=== PATIENT | female | born 1930 | race Caucasian/White ===

== ENCOUNTER → 2017-05-09 | Outpatient (CLI) | payer OTHER ==
[~2017-05-09] MED LIST: BUPR150SR PO; CYAN250014 PO; ESTR-7 PO; EZET10 PO; FENO145T PO; FLUT16H NASAL; FOLI1TAB15 PO; LEVO75TA6 PO; MAGN250T10 PO; METO-391 PO; POTA2TAB18 PO; VIT B6 PO; VIT D3 PO
== END | disposition home or self-care (01) ==
LOC: RAH 10:48
PROVIDERS: ATTEND Internal Medicine
DX: M51.36 Other intervertebral disc degeneration, lumbar region (principal)
CPT/HCPCS: 72100

== ENCOUNTER → 2017-08-17 | Outpatient (CLI) | payer OTHER | END | disposition home or self-care (01) | LOC: RAH 08:06 | PROVIDERS: ATTEND Internal Medicine | DX: C50.911 Malignant neoplasm of unspecified site of right female breast (principal); C50.912 Malignant neoplasm of unspecified site of left female breast; R92.2 Inconclusive mammogram | CPT/HCPCS: 76641; 77066 ==

== ENCOUNTER → 2018-08-01 | Outpatient (CLI) | payer OTHER ==
--- NOTE | 2018-08-01 12:46 | NUR ---
MBSS COMPLETE. -S/S OF ASPIRATION. RECOMMEND REGULAR, THIN LIQUID DIET; PILLS WHOLE WITH LIQUIDS. PATIENT INFORMATION: Pt IS AN 87 Y.O. FEMALE REFERRED FOR AN MBSS SECONDARY TO COMPLAINS OF CHOKING. Pt HAS A PAST MEDICAL HISTORY SIGNIFICANT FOR HYPOTHYROIDISM, TISSUE DETERIORATION, DEPRESSION, RAPID HEARTBEAT, HIGH BLOOD PRESSURE, GERD (PEPCID), AND HIGH CHOLESTEROL. Pt COMPLAINS THAT SHE HAS THE MOST DIFFICULTY WITH FIRST AND LAST SWALLOWS OF LIQUIDS. SHE HAS PRESENTS WITH HOARSENESS IN THE MORNING. EVALUATION: SWALLOW FUNCTION AND EFFICIENCY WITHIN FUNCTIONAL LIMITS. ORAL MOTOR STRENGTH, COORDINATION, AND ROM WITHIN FUNCTIONAL LIMITS. LARYNGEAL ELEVATION/EXCURSION STRONG WITH TIMELY PHARYNGEAL RESPONSE. NO OVERT SIGNS OR SYMPTOMS OF ASPIRATION PRESENT DURING MBSS. TRIALS: 1. TSP PUREED: GOOD 2. TSP PUDDING: GOOD 3. TSP MIXED: GOOD 4. COOKIE: GOOD 5. TSP THIN LIQUIDS: GOOD 6. CUP SIP THIN LIQUIDS: GOOD 7. STRAW SIP LIQUIDS (CONTINUOUS): GOOD RECOMMENDATIONS: 1. REGULAR TEXTURE, THIN LIQUID DIET; PILLS WHOLE WITH LIQUIDS. 2. COMPENSATORY STRATEGIES (PROPHYLAXIS): *SEATED AT 90 DEGREE ANGLE *REMAIN UPRIGHT 30 MINUTES AFTER MEAL TIMES 3. GI CONSULT SECONDARY TO DISCOMFORT DURING THE SWALLOW. G-CODES SWALLOWING: [id number] Addendum: 08/01/18 at 1302 by JERI CLEVELAND Amended: Links added.
== END | disposition home or self-care (01) ==
LOC: RAH 09:50
PROVIDERS: ATTEND Internal Medicine Gastroenterology
DX: R13.10 Dysphagia, unspecified (principal); K21.9 Gastro-esophageal reflux disease without esophagitis; E03.9 Hypothyroidism, unspecified; I10 Essential (primary) hypertension
CPT/HCPCS: 74230; 92611; G8996; G8997; G8998

== ENCOUNTER → 2018-08-21 | Outpatient (CLI) | payer OTHER | END | disposition home or self-care (01) | LOC: RAH 12:37 | PROVIDERS: ATTEND Internal Medicine | DX: N60.02 Solitary cyst of left breast (principal); N60.01 Solitary cyst of right breast; R92.2 Inconclusive mammogram | CPT/HCPCS: 76641; 77066 ==

== ENCOUNTER 2018-11-28 09:45 | Day surgery (SDC) | payer OTHER ==
[2018-11-28 09:05] VITALS: BP 156/77
[~2018-11-28 09:45] MED LIST changes: +CHLO25TA3 PO; -CYAN250014 PO; +DEXL60CA3 PO; -EZET10 PO; +EZET10TA13 PO; +FOLI0.8C PO; -FOLI1TAB15 PO; +ISOS30TA6 PO; -METO-391 PO; +METO50TA18 PO; +PHYT100T PO; -POTA2TAB18 PO; +POTASSIUM PO; +SODIUM CHLORIDE 0.9% 1000ML 1,000 ML IV ONE; -VIT B6 PO; -VIT D3 PO; +VITAMIN B 12 PO; +VITAMIN D3; +ZINC50TA64 PO
[2018-11-28] MEDS ORDERED: PROPOFOL 10 MG/ML 20ML VIAL IV ONE (10:03)
[2018-11-28 10:26] VITALS: BP 135/71
[2018-11-28 10:31] VITALS: BP 124/60
[2018-11-28 10:39] VITALS: BP 130/63
[2018-11-28 10:50] VITALS: BP 140/71
== END 2018-11-28 10:50 | disposition home or self-care (01) ==
LOC: DAH 09:45 → ENDO 09:45
PROVIDERS: ATTEND Internal Medicine
DX: K21.9 Gastro-esophageal reflux disease without esophagitis (principal); R15.2 Fecal urgency; R12 Heartburn; K44.9 Diaphragmatic hernia without obstruction or gangrene; K29.50 Unspecified chronic gastritis without bleeding; D13.1 Benign neoplasm of stomach; K62.1 Rectal polyp; I10 Essential (primary) hypertension; E03.9 Hypothyroidism, unspecified; M19.90 Unspecified osteoarthritis, unspecified site; E78.5 Hyperlipidemia, unspecified; F32.9 Major depressive disorder, single episode, unspecified; Z98.890 Other specified postprocedural states; Z88.8 Allergy status to other drugs, medicaments and biological substances; Z86.010 Personal history of colon polyps; Z79.899 Other long term (current) drug therapy; Z87.891 Personal history of nicotine dependence; F41.9 Anxiety disorder, unspecified; Z82.49 Family history of ischemic heart disease and other diseases of the circulatory system; Z83.3 Family history of diabetes mellitus; Z82.3 Family history of stroke
CPT/HCPCS: 43239; 43251; 45331; 88305; J2704; J7030

== ENCOUNTER → 2019-08-02 | Outpatient (CLI) | payer OTHER ==
[~2019-08-02] MED LIST changes: -SODIUM CHLORIDE 0.9% 1000ML 1,000 ML IV ONE
== END | disposition home or self-care (01) ==
LOC: RAH 11:46
PROVIDERS: ATTEND Internal Medicine Cardiovascular Disease
DX: Z01.810 Encounter for preprocedural cardiovascular examination (principal); M47.814 Spondylosis without myelopathy or radiculopathy, thoracic region; I70.0 Atherosclerosis of aorta; Y66 Nonadministration of surgical and medical care
CPT/HCPCS: 71046

== ENCOUNTER → 2019-08-27 | Outpatient (CLI) | payer OTHER | END | disposition home or self-care (01) | LOC: RAH 10:45 | PROVIDERS: ATTEND Physical Medicine & Rehabilitation | DX: M47.27 Other spondylosis with radiculopathy, lumbosacral region (principal); I70.209 Unspecified atherosclerosis of native arteries of extremities, unspecified extremity | CPT/HCPCS: 72100 ==

== ENCOUNTER → 2019-12-31 | Outpatient (CLI) | payer OTHER | END | disposition home or self-care (01) | LOC: RAH 16:35 | PROVIDERS: ATTEND Physical Medicine & Rehabilitation | DX: M47.812 Spondylosis without myelopathy or radiculopathy, cervical region (principal); M48.02 Spinal stenosis, cervical region; M25.78 Osteophyte, vertebrae | CPT/HCPCS: 72052 ==

== ENCOUNTER → 2020-02-17 | Outpatient (CLI) | payer OTHER | END | disposition home or self-care (01) | LOC: RAH 10:54 | PROVIDERS: ATTEND Internal Medicine | DX: N60.12 Diffuse cystic mastopathy of left breast (principal); N60.11 Diffuse cystic mastopathy of right breast; N60.01 Solitary cyst of right breast; N60.02 Solitary cyst of left breast | CPT/HCPCS: 77066 ==

== ENCOUNTER → 2020-03-09 | Outpatient (CLI) | payer OTHER | END | disposition home or self-care (01) | LOC: RAH 11:26 | PROVIDERS: ATTEND Physical Medicine & Rehabilitation | DX: M43.16 Spondylolisthesis, lumbar region (principal); M51.37 Other intervertebral disc degeneration, lumbosacral region | CPT/HCPCS: 72114 ==

== ENCOUNTER → 2020-03-31 | Outpatient (CLI) | payer OTHER ==
[~2020-03-31] MED LIST changes: -ISOS30TA6 PO; +ISOS30TA92 PO
== END | disposition home or self-care (01) ==
LOC: RAH 12:35
PROVIDERS: ATTEND Physical Medicine & Rehabilitation
DX: J32.0 Chronic maxillary sinusitis (principal); G31.9 Degenerative disease of nervous system, unspecified; R27.8 Other lack of coordination
CPT/HCPCS: 70551

== ENCOUNTER → 2020-05-11 | Outpatient (CLI) | payer OTHER | END | disposition home or self-care (01) | LOC: RAH 10:54 | PROVIDERS: ATTEND Internal Medicine Cardiovascular Disease | DX: Z13.6 Encounter for screening for cardiovascular disorders (principal) | CPT/HCPCS: 75571 ==

== ENCOUNTER → 2020-05-28 | Outpatient (CLI) | payer OTHER | END | disposition home or self-care (01) | LOC: RAH 07:33 | PROVIDERS: ATTEND Internal Medicine Gastroenterology | DX: R10.11 Right upper quadrant pain (principal); R16.0 Hepatomegaly, not elsewhere classified; K76.0 Fatty (change of) liver, not elsewhere classified; Z90.49 Acquired absence of other specified parts of digestive tract | CPT/HCPCS: 76700 ==

== ENCOUNTER 2020-06-02 07:25 | Day surgery (SDC) | payer OTHER ==
[~2020-06-02] VITALS: Ht 160 cm; Wt 81.6 kg
[2020-06-02] VITALS (8 sets, daily range): BP systolic 108–166; BP diastolic 50–84
[~2020-06-02 07:25] MED LIST changes: -BUPR150SR PO; -DEXL60CA3 PO; -FLUT16H NASAL; +SODIUM CHLORIDE 0.9% 1000ML 1,000 ML IV ONE
[2020-06-02] MEDS ORDERED: PROPOFOL 10 MG/ML 20ML VIAL IV ONE (09:18)
== END 2020-06-02 10:05 | disposition home or self-care (01) ==
LOC: ENDO 07:25 → DAH 07:25 → ENDO 10:05
PROVIDERS: ATTEND Internal Medicine Gastroenterology
DX: R10.13 Epigastric pain (principal); K22.70 Barrett's esophagus without dysplasia; K29.70 Gastritis, unspecified, without bleeding; K21.9 Gastro-esophageal reflux disease without esophagitis; K44.9 Diaphragmatic hernia without obstruction or gangrene; C7A.026 Malignant carcinoid tumor of the rectum; D12.6 Benign neoplasm of colon, unspecified; K57.30 Diverticulosis of large intestine without perforation or abscess without bleeding; I10 Essential (primary) hypertension; E78.5 Hyperlipidemia, unspecified; E04.9 Nontoxic goiter, unspecified; F32.9 Major depressive disorder, single episode, unspecified; E03.9 Hypothyroidism, unspecified; M19.90 Unspecified osteoarthritis, unspecified site; Z90.89 Acquired absence of other organs; Z20.828 Contact with and (suspected) exposure to other viral communicable diseases; Z79.899 Other long term (current) drug therapy
CPT/HCPCS: 43239; 93005; A4221; A4222; A4223; A4606; A4620; A4663; C9803; J2704; J7030; U0003

== ENCOUNTER → 2020-06-11 | Outpatient (CLI) | payer OTHER ==
[~2020-06-11] MED LIST changes: -SODIUM CHLORIDE 0.9% 1000ML 1,000 ML IV ONE
== END | disposition home or self-care (01) ==
LOC: SHCH 08:51
PROVIDERS: ATTEND Internal Medicine Cardiovascular Disease
DX: I08.8 Other rheumatic multiple valve diseases (principal); I10 Essential (primary) hypertension; I73.9 Peripheral vascular disease, unspecified; R01.1 Cardiac murmur, unspecified; R55 Syncope and collapse
CPT/HCPCS: 93306; 93356; 93925; 93978

== ENCOUNTER → 2020-08-17 | Outpatient (CLI) | payer OTHER | END | disposition home or self-care (01) | LOC: RAH 15:20 | PROVIDERS: ATTEND Internal Medicine | DX: S90.122A Contusion of left lesser toe(s) without damage to nail, initial encounter (principal); X58.XXXA Exposure to other specified factors, initial encounter; Y93.89 Activity, other specified; Y92.89 Other specified places as the place of occurrence of the external cause; Y99.8 Other external cause status | CPT/HCPCS: 73630 ==